=== PATIENT | female | born 1940 | race Caucasian/White ===

== ENCOUNTER 2017-04-14 18:10 | Emergency (ER) | payer OTHER, MEDICARE ==
[~2017-04-14] VITALS: Ht 175.3 cm; Wt 65.8 kg
[2017-04-14 18:19] VITALS: BP_SYST 160
--- NOTE | 2017-04-14 18:39 | NUR ---
ER Dr. Weems at bedside examining patient.
--- NOTE | 2017-04-14 18:40 | NUR ---
Placed in room 06 . Placed on [employer], blood pressure machine and pulse oximeter. To gown for exam. Side rails up. Report given to Isaias GONSALVES.
--- NOTE | 2017-04-14 18:41 | NUR ---
Pt AAOx4 ambulated into ED c/o R flank pain radiating to R upper back x 2 weeks. Pt states "I thought it would get better, but the pain is especially severe today." Pt took two tylenol this morning with relief, but pain has returned. Pt denies N/V/D. No deformities noted on site. Pt speaking in clear sentences, breathing even and unlabored. No other injuries/complaints per pt/noted. Will continue to monitor.
--- NOTE | 2017-04-14 18:42 | NUR ---
ER Dr. Weems at bedside examining patient.
[2017-04-14] MEDS ORDERED: MORPHINE 4 MG/ML INJ. SYRINGE IVP ONE (18:45)
--- NOTE | 2017-04-14 19:08 | NUR ---
Care endorsed to Lakia GONSALVES
--- NOTE | 2017-04-14 19:20 | NUR ---
Urine specimen collected and sent to lab. Results to be given to ANGELES RESTREPO.
[2017-04-14 19:28] LABS: INR 1.1 (0.8-1.2)
[2017-04-14 19:29] LABS: BASOPHILS % (AUTO) 1.8 % (0.0-2.0); EOSINOPHILS # (AUTO) 0.2 K/uL (0.0-0.4); EOSINOPHILS % (AUTO) 3.3 % (0.0-4.0); HEMATOCRIT 41.2 % (36-48); HEMOGLOBIN 13.8 g/dL (12.0-16.0); LYMPHOCYTES # (AUTO) 1.5 K/uL (1.0-5.5); LYMPHOCYTES % (AUTO) 26.6 % (20.5-51.5); MEAN CORPUSCULAR HEMOGLOBIN 34 pg (27-31); MEAN CORPUSCULAR HGB CONC 34 % (32-36); MEAN CORPUSCULAR VOLUME 102 fL (79.0-98.0); MONOCYTES # (AUTO) 0.6 K/uL (0.0-1.0); MONOCYTES % (AUTO) 9.9 % (1.7-9.3); NEUTROPHILS # (AUTO) 3.3 K/uL (1.8-7.7); NEUTROPHILS % (AUTO) 58.4 % (40.0-70.0); PLATELET COUNT (AUTO) 181 K/uL (130-430); RED BLOOD CELL COUNT(AUTO) 4.02 MIL/uL (4.2-6.2); RED CELL DISTRIBUTION WIDTH 12.1 % (9.0-15.0); WHITE BLOOD COUNT (AUTO) 5.7 K/uL (4.8-10.8)
[2017-04-14 19:30] LABS: BASOPHILS # (AUTO) 0.1 K/uL (0.0-0.2)
[2017-04-14 19:35] LABS: COLOR,URINE YELLOW (YELLOW)
[2017-04-14 19:36] LABS: BILIRUBIN,URINE NEGATIVE (NEGATIVE); BLOOD, URINE TRACE (NEGATIVE); CLARITY/URINE HAZY (CLEAR); GLUCOSE,URINE NEGATIVE (NEGATIVE); KETONES,URINE NEGATIVE (NEGATIVE); LEUKOCYTE ESTERASE ,URINE 2+ (NEGATIVE); NITRITE, URINE NEGATIVE (NEGATIVE); PROTEIN URINE NEGATIVE (NEGATIVE); UROBILINOGEN,URINE 0.2 (0.2-1.0)
[2017-04-14 19:37] LABS: RBC,URINE 0-3 /HPF (0-3); WBC,URINE 20-50 /HPF (0-3)
[2017-04-14 19:38] LABS: BACTERIA,URINE MANY /HPF (None Seen); MUCUS,URINE None Seen /LPF (None Seen)
[2017-04-14 19:38] LABS: CHLORIDE 104 mmol/L (98-107); POTASSIUM 4.2 mmol/L (3.5-5.1); SODIUM SERUM 137 mmol/L (136-145)
[2017-04-14 19:39] LABS: ALANINE AMINOTRANSFERASE 23 U/L (12-78); ALBUMIN 3.9 g/dL (3.4-4.8); ANION GAP 11 (5-15); ASPARTATE AMINOTRANSFERASE 17 U/L (10-37); CALCIUM 9.9 mg/dL (8.4-11.0); CREATININE 1.28 mg/dL (0.55-1.30); GLUCOSE 96 mg/dL (70-99); TOTAL BILIRUBIN 0.2 mg/dL (0.0-1.0); UREA NITROGEN, BLOOD 29 mg/dL (8-21)
[2017-04-14 19:40] LABS: AMYLASE 80 U/L (0-100); LIPASE 958 U/L (73-393)
--- NOTE | 2017-04-14 19:42 | NUR ---
Patient transported to radiology via gurney, accompanied by laundry tech.
--- NOTE | 2017-04-14 20:00 | NUR ---
Returned from radiology, back to [facility].
--- NOTE | 2017-04-14 20:02 | NUR ---
Returned from radiology, back to [facility].
[2017-04-14] MEDS ORDERED: KETOROLAC TROMETHAMINE 30 MG VIAL IVP ONE (21:15)
[2017-04-14] MEDS ORDERED: LEVOFLOXACIN 500 MG TABLET PO ONE (21:15)
[2017-04-14 21:37] VITALS: BP_SYST 145
--- NOTE | 2017-04-14 21:37 | NUR ---
Patient given written and verbal discharge instructions and verbalizes understanding. ER MD discussed with patient the results and treatment provided. Patient in stable condition. ID arm band removed. IV catheter removed intact and dressing applied, no active bleeding. Rx of Levaquin and ibuprofen given. Patient educated on pain management and to follow up with PMD. Pain Scale 0/10. Opportunity for questions provided and answered. Medication side effect fact sheet provided.
== END 2017-04-14 21:37 | disposition home or self-care (01) ==
LOC: SED 18:10
DX: N39.0 Urinary tract infection, site not specified (principal); J18.9 Pneumonia, unspecified organism; R74.8 Abnormal levels of other serum enzymes; I10 Essential (primary) hypertension; Z90.710 Acquired absence of both cervix and uterus
CPT/HCPCS: 36415; 71045; 74176; 80053; 81000; 82150; 82550; 83690; 84484; 85025; 85610; 85730; 87086; 87186; 96374; 96375; 99285; J1885; J2270

== ENCOUNTER 2017-04-15 16:31 | Emergency (ER) | payer OTHER, MEDICARE ==
[~2017-04-15] VITALS: Ht 175.3 cm; Wt 65.8 kg
[2017-04-15 16:35] VITALS: BP_SYST 167
[2017-04-15] MEDS ORDERED: KETOROLAC TROMETHAMINE 60 MG/2 ML VIAL IM ONE (17:30)
[2017-04-15 17:56] VITALS: BP_SYST 142
== END 2017-04-15 17:56 | disposition home or self-care (01) ==
LOC: SED 16:31
DX: M94.0 Chondrocostal junction syndrome [Tietze] (principal); I10 Essential (primary) hypertension
CPT/HCPCS: 93005; 99283; J1885

== ENCOUNTER 2020-01-24 18:46 | Emergency (ER) | payer OTHER, MEDICARE ==
[~2020-01-24] VITALS: Ht 175.3 cm; Wt 59.0 kg
[2020-01-24 18:48] VITALS: BP_SYST 222
[2020-01-24] MEDS ORDERED: hydrALAZINE HCL 20 MG/ML VIAL IVP ONE ×2 (21:00→21:45)
[2020-01-24 21:56] LABS: BASOPHILS % (AUTO) 0.5 % (0.0-2.0); EOSINOPHILS # (AUTO) 0.1 K/uL (0.0-0.4); EOSINOPHILS % (AUTO) 1.2 % (0.0-4.0); HEMATOCRIT 44.9 % (36-48); HEMOGLOBIN 14.8 g/dL (12.0-16.0); LYMPHOCYTES # (AUTO) 1.1 K/uL (1.0-5.5); LYMPHOCYTES % (AUTO) 22.4 % (20.5-51.5); MEAN CORPUSCULAR HEMOGLOBIN 36 pg (27-31); MEAN CORPUSCULAR HGB CONC 33 % (32-36); MEAN CORPUSCULAR VOLUME 108 fL (79.0-98.0); MONOCYTES # (AUTO) 0.5 K/uL (0.0-1.0); MONOCYTES % (AUTO) 9.2 % (1.7-9.3); NEUTROPHILS # (AUTO) 3.3 K/uL (1.8-7.7); NEUTROPHILS % (AUTO) 66.7 % (40.0-70.0); PLATELET COUNT (AUTO) 127 K/uL (130-430); RED BLOOD CELL COUNT(AUTO) 4.16 MIL/uL (4.2-6.2); RED CELL DISTRIBUTION WIDTH 13.2 % (9.0-15.0)
[2020-01-24 22:11] LABS: ANION GAP 9 (5-15); CALCIUM 9.3 mg/dL (8.4-11.0); CHLORIDE 105 mmol/L (98-107); CREATININE 1.03 mg/dL (0.55-1.30); GLUCOSE 102 mg/dL (70-99); POTASSIUM 3.7 mmol/L (3.5-5.1); SODIUM SERUM 141 mmol/L (136-145); UREA NITROGEN, BLOOD 22 mg/dL (8-21)
[2020-01-24 22:23] LABS: ALANINE AMINOTRANSFERASE 21 U/L (12-78); ALBUMIN 3.6 g/dL (3.4-4.8); ASPARTATE AMINOTRANSFERASE 19 U/L (10-37); TOTAL BILIRUBIN 0.5 mg/dL (0.0-1.0)
[2020-01-24] MEDS ORDERED: ACETAMINOPHEN 325 MG TABLET ONE (22:40)
[2020-01-24] MEDS ORDERED: ACETAMINOPHEN 325 MG TABLET PO ONE (22:45)
[2020-01-24] MEDS ORDERED: LORazepam 1 MG TABLET ONE (23:38)
[2020-01-24 23:45] VITALS: BP_SYST 169
[2020-01-24] MEDS ORDERED: LORazepam 1 MG TABLET PO ONE (23:45)
== END 2020-01-24 23:45 | disposition home or self-care (01) ==
LOC: SED 18:46
DX: I16.0 Hypertensive urgency (principal); I10 Essential (primary) hypertension; E78.5 Hyperlipidemia, unspecified; R90.82 White matter disease, unspecified; Z86.73 Personal history of transient ischemic attack (TIA), and cerebral infarction without residual deficits
CPT/HCPCS: 36415; 70450; 76376; 80053; 84484; 85025; 93005; 96374; 99285; J0360